=== PATIENT | female | born 1990 | race Caucasian/White ===

== ENCOUNTER 2017-08-02 12:49 | Emergency (ER) | payer OTHER ==
[2017-08-02 12:55] VITALS: BP 139/90; PULSE 65; TEMP 97.5; BMI 24.2
--- NOTE | 2017-08-02 15:26 | PDOC ---
History of Present Illness - General Chief Complaint: Laceration Stated Complaint: LACERATED LT HAND Time Seen by Provider: 08/02/17 14:52 History Source: Patient Exam Limitations: No Limitations - History of Present Illness Initial Comments: 08/02/17 20:09 CHIEF COMPLAINT: Laceration to dorsum of left hand between the first and second fingers HISTORY OF PRESENT ILLNESS: She is an otherwise healthy 27-year-old female, no significant medical history currently on no medication, tetanus is up-to-date, reports attempting to open a glass jaw or with a knife slipped and cut the dorsum of her left hand between the first and second fingers. No active bleeding upon arrival. Linear laceration, good Range of motion to fingers. Timing/Duration: reports: just prior to arrival Severity: Yes: mild Respiratory Risk Factors: reports: no cause identified Past History - Past Medical History Allergies/Adverse Reactions: Allergies Allergy/AdvReac Type Severity Reaction Status Date / Time No Known Allergies Allergy Verified 08/02/17 12:52 Home Medications: Ambulatory Orders NK [No Known Home Medication] 08/02/17 COPD: No - Immunization History Immunization Up to Date: Yes - Suicide/Smoking/Psychosocial Hx Smoking History: Never smoked Have you smoked in the past 12 months: No Information on smoking cessation initiated: No Hx Alcohol Use: No Drug/Substance Use Hx: No Substance Use Type: None Review of Systems - Review of Systems Constitutional: No: Symptoms Reported HEENTM: No: Symptoms Reported Respiratory: No: Symptoms reported Cardiac (ROS): No: Symptoms Reported ABD/GI: No: Symptoms Reported Musculoskeletal: No: Symptoms Reported, Joint Pain, Joint Swelling Integumentary: Yes: Other (1-1/2 cm laceration to the dorsum of the left hand between the first and second fingers.). No: Symptoms Reported *Physical Exam - Vital Signs Last Vital Signs Temp Pulse Resp BP Pulse Ox 97.5 F L 65 18 139/90 100 08/02/17 12:52 08/02/17 12:52 08/02/17 12:52 08/02/17 12:52 08/02/17 12:52 - Physical Exam General Appearance: Yes: Appropriately Dressed. No: Apparent Distress Neck: negative: Tender lateral, Tender midline Respiratory/Chest: positive: Lungs Clear, Normal Breath Sounds. negative: Respiratory Distress, Accessory Muscle Use Musculoskeletal: positive: Normal Inspection. negative: Decreased Range of Motion Extremity: positive: Normal Capillary Refill, Normal Inspection, Normal Range of Motion Integumentary: positive: Normal Color, Dry, Other (1.5 cm laceration to the dorsum of the left hand, linear, no active bleeding, between the first and second fingers.) Neurologic: positive: Alert, Normal Mood/Affect Procedures - Laceration/Wound Repair Left Hand Wound Length: to 2.5 cm Wound Explored: clean Wound's Depth, Shape: linear Irrigated w/ Saline: Yes Betadine Prep: Yes Anesthesia: 1% Lidocaine Amount of Anesthetic (ccs): 2 Wound Debrided: minimal Wound Repaired With: Sutures Suture Size/Type: 5:0 Number of Sutures: 4 Medical Decision Making - Medical Decision Making 08/02/17 20:12 A/P: Patient with laceration to left hand, see procedure note, follow-up as instructed *DC/Admit/Observation/Transfer Diagnosis at time of Disposition: Hand laceration Qualifiers: Encounter type: initial encounter Foreign body presence: without foreign body Laterality: left Qualified Code(s): S61.412A - Laceration without foreign body of left hand, initial encounter - Discharge Dispostion Disposition: HOME Condition at time of disposition: Stable Admit: No - Referrals - Patient Instructions Printed Discharge Instructions: DI for Laceration Repair Additional Instructions: Keep area clean dry and intact Keep dressing on until tomorrow If any increased bleeding through the dressing return immediately to emergency department Please return in 10 days for suture removal. Please return immediately to emergency department with any increased redness, swelling, signs of infection - Post Discharge Activity
== END 2017-08-02 15:29 | disposition home or self-care (01) ==
LOC: JERFT 12:49
PROC: 0JQK0ZZ Repair Left Hand Subcutaneous Tissue and Fascia, Open Approach (ICD-10-PCS; principal; 2017-08-02)
DX: S61.412A Laceration without foreign body of left hand, initial encounter (principal); W26.0XXA Contact with knife, initial encounter; Y93.89 Activity, other specified; Y92.89 Other specified places as the place of occurrence of the external cause; Y99.8 Other external cause status
CPT/HCPCS: 99281-25